=== PATIENT | male | born 1985 | race Two or more races ===

== ENCOUNTER 2025-06-04 02:14 | Emergency (ER) | payer OTHER ==
[~2025-06-04] VITALS: Ht 170.2 cm; Wt 120.5 kg
[2025-06-04 02:25] VITALS: BP 140/90; PULSE 80; RESP 14; TEMP 97.9; O2SAT 98
[2025-06-04 03:05] LABS: PLATELET COUNT (AUTO) 219 K/uL (150-450); RED BLOOD CELL COUNT(AUTO) 5.01 MIL/uL (4.50-5.90); RED CELL DISTRIBUTION WIDTH 12.9 % (11.5-14.5); WHITE BLOOD COUNT (AUTO) 6.9 K/uL (4.5-11.0)
[2025-06-04 03:31] LABS: CALCIUM, TOTAL 8.4 mg/dL (8.8-10.5); CREATININE 0.68 mg/dL (0.60-1.30); GLOMERULAR FILTR. RATE CALC > 60 mL/min (>60); GLUCOSE,RANDOM 102 mg/dL (70-110); SODIUM SERUM 138 mmol/L (136-145); UREA NITROGEN, BLOOD 11 mg/dL (7-18)
[2025-06-04 03:35] LABS: ASPARTATE AMINOTRANSFERASE 68.0 U/L (15-37); TOTAL PROTEIN, SERUM 7.7 g/dL (6.4-8.2)
[2025-06-04] MEDS: IBUPROFEN 400 MG TABLET PO ONE (05:00)
[2025-06-04] MEDS: METOCLOPRAMIDE HCL 10 MG TABLET PO ONE (05:00)
[2025-06-04] MEDS: ACETAMINOPHEN 500 MG TABLET PO ONE (05:00)
== END 2025-06-04 06:58 | disposition home or self-care (01) ==
LOC: EMS 02:19
DX: R51.9 Headache, unspecified (principal); R20.2 Paresthesia of skin; R07.89 Other chest pain
CPT/HCPCS: 71045; 80048; 80076; 82962; 85025; 93005; 99285; 36415-L1; 36415-TC